=== PATIENT | female | born 1990 | race Caucasian/White ===

== ENCOUNTER 2018-01-22 12:31 | Emergency (ER) | payer SELFPAY ==
[2018-01-22 12:32] VITALS: BMI 29.2
[2018-01-22 12:51] VITALS: BP 114/72; PULSE 65; RESP 16; TEMP 99.1; O2SAT 98
[2018-01-22] MEDS ORDERED: Sodium Chloride 0.9% 1,000 ML IV ONE (13:15)
[2018-01-22 13:58] LABS: BASO % 0.6 % (0.0-2.0); EOS % 0.9 % (0.0-4.0); HEMOGLOBIN 13.5 g/dL (11.0-16.0); LYMPH # 1.3 K/uL (1.0-4.3); LYMPH % 22.9 % (20.0-40.0); MEAN CELL VOLUME 88.1 fL (81.0-99.0); MEAN CORPUSCULAR HEMOGLOBIN 30.3 pg (27.0-31.0); MEAN CORPUSCULAR HGB CONC 34.4 g/dL (33.0-37.0); MEAN PLATELET VOLUME 11.6 fL (7.2-11.7); MONO # 0.5 K/uL (0.0-0.8); MONO % 9.2 % (0.0-10.0); NEUT # 3.8 K/uL (1.8-7.0); NEUT % 66.4 % (50.0-75.0); RBC 4.44 Mil/uL (3.80-5.20); RED CELL DISTRIBUTION WIDTH 13.3 % (11.5-14.5); WHITE BLOOD COUNT 5.8 K/uL (4.8-10.8)
[2018-01-22 14:03] LABS: SQUAMOUS EPITHIAL 1 /hpf (0-5); URINE BACTERIA RARE (<OCC); URINE BILIRUBIN NEGATIVE (NEGATIVE); URINE BLOOD NEGATIVE (NEGATIVE); URINE CLARITY Clear (Clear); URINE COLOR Straw (YELLOW); URINE GLUCOSE (UA) NORMAL (Normal); URINE LEUKOCYTE ESTERASE TRACE Leu/uL (Negative); URINE PROTEIN NEGATIVE (NEGATIVE); URINE UROBILINOGEN NORMAL mg/dL (0.2-1.0)
[2018-01-22 14:07] LABS: INR 1.2; PROTHROMBIN TIME 12.6 SECONDS (9.7-12.2)
[2018-01-22 14:14] LABS: BLOOD UREA NITROGEN 9 mg/dL (7-17); CALCIUM 8.9 mg/dl (8.6-10.4); GFR NON-AFRICAN AMERICAN > 60
--- NOTE | 2018-01-22 15:21 | C.PDOC ---
History Of Present Illness 27 yo female , hx of miscarriage #5, hx of ectopic in past #1, LNMP 12/19/17, comes in for evaluation of Right sided groin pain intermittent for past 2 weeks. Pt reports, yesterday had episode of some vaginal spotting. Otherwise, pt denies fever, chills, headache, dizziness, sore throat, CP, SOB, dyspnea, diaphoresis, palpitation, abd. pain, N/V/D, UTI sx, vaginal irritation or vaginal bleeding, denies any other active complaints. Ambulate to ED fir evaluation, not in any apparent distress. <Flower Esteves - Last Filed: 01/22/18 15:17> History Per: Patient <Flower Esteves - Last Filed: 01/22/18 15:17> <Nirav Crandall - Last Filed: 01/26/18 19:17> Time Seen by Provider: 01/22/18 13:14 Chief Complaint (Nursing): Female Genitourinary Past Medical History Reviewed: Historical Data, Nursing Documentation, Vital Signs Vital Signs: Last Vital Signs Temp 99.1 F 01/22/18 12:47 Pulse 65 01/22/18 12:47 Resp 16 01/22/18 12:47 BP 114/72 01/22/18 12:47 Pulse Ox 98 01/22/18 12:47 - Medical History PMH: Asthma, Bronchitis, Sexually Transmitted Disease (2014, HSV 2) Denies: Chronic Kidney Disease Surgical History: Tonsillectomy (and cyst removal) - [facility] Procedures ASPIRAT CURET-POST DELIV (11/01/14) ASPIRATION SKIN & SUBQ (08/22/13) INJECT/INFUSE ELECTROLYT (11/20/14) INJECT/INFUSE NEC (11/20/14) NEBULIZER THERAPY (09/28/03) OTHER SKIN & SUBQ I D (03/27/14) RESECTION OF ECTOPIC POC, PERC ENDO APPROACH (02/20/15) RESECTION OF LEFT FALLOPIAN TUBE, PERC ENDO APPROACH (02/20/15) Family History: States: Unknown Family Hx - Social History Hx Tobacco Use: No Hx Alcohol Use: No Hx Substance Use: Yes - Immunization History Hx Tetanus Toxoid Vaccination: Yes Hx Influenza Vaccination: No Hx Pneumococcal Vaccination: No <Flower Esteves - Last Filed: 01/22/18 15:17> Vital Signs: Last Vital Signs Temp 99.1 F 01/22/18 12:47 Pulse 65 01/22/18 12:47 Resp 16 01/22/18 12:47 BP 114/72 01/22/18 12:47 Pulse Ox 98 01/22/18 15:27 - [facility] Procedures ASPIRAT CURET-POST DELIV (11/01/14) ASPIRATION SKIN & SUBQ (08/22/13) INJECT/INFUSE ELECTROLYT (11/20/14) INJECT/INFUSE NEC (11/20/14) NEBULIZER THERAPY (09/28/03) OTHER SKIN & SUBQ I D (03/27/14) RESECTION OF ECTOPIC POC, PERC ENDO APPROACH (02/20/15) RESECTION OF LEFT FALLOPIAN TUBE, PERC ENDO APPROACH (02/20/15) <Nirav Crandall - Last Filed: 01/26/18 19:17> Review Of Systems Except As Marked, All Systems Reviewed And Found Negative. Constitutional: Negative for: Fever, Chills ENT: Negative for: Throat Pain Cardiovascular: Negative for: Chest Pain, Palpitations Respiratory: Negative for: Cough, Shortness of Breath, Wheezing Gastrointestinal: Negative for: Nausea, Vomiting, Abdominal Pain, Diarrhea Genitourinary: Positive for: Other (vag spotting). Negative for: Dysuria, Frequency, Hematuria Musculoskeletal: Negative for: Neck Pain, Back Pain Skin: Negative for: Rash Neurological: Negative for: Weakness, Numbness, Altered Mental Status <Flower Esteves - Last Filed: 01/22/18 15:17> Physical Exam - Physical Exam Appears: Well, Non-toxic, No Acute Distress Skin: Normal Color, Warm, Dry, No Rash Head: Normacephalic Eye(s): bilateral: PERRL Nose: No Flaring Oral Mucosa: Moist Throat: No Erythema, No Drooling Neck: Supple Cardiovascular: Rhythm Regular, No Murmur, No JVD Respiratory: No Decreased Breath Sounds, No Accessory Muscle Use, No Stridor, No Wheezing Gastrointestinal/Abdominal: Soft, No Tenderness, No Distention, No Guarding, No Rebound, No Hernia Back: No CVA Tenderness Extremity: Normal ROM, No Pedal Edema, No Deformity, No Swelling Neurological/Psych: Oriented x3, Normal Speech <Flower Esteves - Last Filed: 01/22/18 15:17> ED Course And Treatment - Laboratory Results Result Diagrams: 01/22/18 13:54 01/22/18 13:54 Lab Interpretation: No Acute Changes O2 Sat by Pulse Oximetry: 98 Pulse Ox Interpretation: Normal - CT Scan/US Transvaginal US Other Rad Studies (CT/US): Radiology Report Reviewed CT/US Interpretation: PRELIM READ: (+)tiny cystoc structure possible early , ?GS,. No YS, no FT. Progress Note: On re-eval, pt remained tsbale, not in any apparent distress. Afebrile, hemodynamicaly stable. Non-toxic. ENT: no acute findings. Lungs: CTA B/L, BS equal B/L. ABd: benign, (-) guarding or reboud (-) RLQ tenderness. back: (-) CVA tenderness. Blood work review and appears normal. US results (+) early preg but unable to r/o ectopic preg. beta quant c/w early preg. Blood type A pos. Pt has clinical findings c/w early prega r/o ectopic r/o theratened . Pt advised on course of ds. ref. to f/u with OB or ED in 2 days for re-eavl, repate tests. Pt understand and agrees with plan. <Flower Esteves - Last Filed: 01/22/18 15:17> - Laboratory Results Result Diagrams: 01/22/18 13:54 01/22/18 13:54 <Nirav Crandall - Last Filed: 01/26/18 19:17> Disposition Counseled Patient/Family Regarding: Studies Performed, Diagnosis, Need For Followup - Disposition Disposition Time: 15:17 <Flower Esteves - Last Filed: 01/22/18 15:17> <Nirav Crandall - Last Filed: 01/26/18 19:17> - Disposition Disposition: HOME/ ROUTINE Condition: STABLE Additional Instructions: RERUN TO ED IN 2 DAYS TO REPEAT BLOOD WORK AND ULTRASOUND. RETURN TO ED AT ANY TIME IF ANY WORSENING OR NEW CHANGES. 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 <Nirav Crandall - Last Filed: 01/26/18 19:17>
--- NOTE | 2018-01-22 17:07 | US ---
Date of service: 01/22/2018 PROCEDURE: First trimester ultrasound HISTORY: Vaginal bleeding. Beta HCG results are pending. COMPARISON: None TECHNIQUE: Standard protocol for this study/examination. FINDINGS: Small saclike structure in the endometrium 1.9 mm. Out of range. Below threshold for calculation of reliable gestational age. Otherwise the endometrium is unremarkable measuring 15 mm in thickness. Uterus measures 5.4 x 9.7 x 6.7 cm. Right ovary 1.9 x 2.6 x 2.7 cm. Left ovary 2.4 x 2.8 x 3.4 cm. No pole or yolk sac identified. Uterus measures 5.4 x 6.8 x 9.7 cm. Trace free fluid identified in the pelvis/cul de sac. IMPRESSION: Possible early intrauterine gestation. Small saclike structure 1.9 mm. Out of range. Below threshold for calculation of reliable gestational age. Additional benign and/or incidental findings described above. Concordant results (preliminary interpretation) provided by [facility]. Procedure Completed: 14:38 Preliminary Report: Dictated and Authenticated: 16:15 Final Interpretation: 17:06. January 22, 2018.
== END 2018-01-22 15:55 | disposition home or self-care (01) ==
LOC: C.ER 12:31
DX: O00.90 Unspecified ectopic pregnancy without intrauterine pregnancy (principal)
CPT/HCPCS: 76805; 76817; 80048; 81001; 84702; 85025; 85610; 85730; 86850; 86900; 96360; 99284; J7030